=== PATIENT | male | born 1960 | race Caucasian/White ===

== ENCOUNTER 2020-02-01 09:34 | Emergency (ER) | payer OTHER ==
--- NOTE | 2020-02-01 09:51 | ED Physician Documentation ---
PD HPI GI BLEED - Stated complaint Stated Complaint: BLOODY STOOL - Chief complaint Chief Complaint: Abd Pain - History obtained from History obtained from: Patient - History of Present Illness Timing - onset: How many days ago (5) Timing - duration: Days (5) Timing - details: Abrupt onset, Still present Associated symptoms: Diarrhea (4-6 times daily for the past 5 days. Noted some rust color to it the past couple of days.). No: Vomiting Contributing factors: Travel (Drove here from [facility] 5 days ago. He states he ate at a couple of fast food restaurants on the way. Denies camping or ground water ingestion. No obviously bad foods.). No: Sick contact, Bad food, Recent antibiotics Worsened by: Eating (He has more diarrhea after eating so has been having a "brat" diet) Similar symptoms before: Has not had sx before Recently seen: Not recently seen Review of Systems Constitutional: reports: Fever (Subjective fever feeling a couple of days ago. None in the last 2 days.), Myalgias, Fatigue Nose: denies: Rhinorrhea / runny nose, Congestion Throat: denies: Sore throat Respiratory: denies: Cough GI: reports: Nausea, Diarrhea, Bloody / black stool (rust/faint red color.). denies: Vomiting, Hematemesis : reports: Dysuria Neurologic: reports: Generalized weakness. denies: Focal weakness, Numbness, Near syncope PD PAST MEDICAL HISTORY - Past Medical History Cardiovascular: None Respiratory: None Neuro: None GI: None - Present Medications Home Medications: Ambulatory Orders Medication Instructions Recorded Confirmed Diphenoxylate/Atropine [Lomotil] 1 each PO QID PRN #16 tablet 02/01/20 Ondansetron Odt [Zofran] 4 mg TL Q6H PRN #10 tablet 02/01/20 Saccharomyces Boulardii [Florastor] 250 mg PO BID #20 capsule 02/01/20 - Allergies Allergies/Adverse Reactions: Allergies Allergy/AdvReac Type Severity Reaction Status Date / Time No Known Drug Allergies Allergy Verified 02/01/20 10:12 PD ED PE NORMAL - Vitals Vital signs reviewed: Yes - General General: Alert and oriented X 3, No acute distress, Well developed/nourished - HEENT HEENT: Moist mucous membranes, Pharynx benign - Neck Neck: Supple, no meningeal sign, No adenopathy - Cardiac Cardiac: RRR, No murmur - Respiratory Respiratory: Clear bilaterally - Abdomen Abdomen: Normal bowel sounds, Soft, Non tender, Non distended, No organomegaly - Male Male : Deferred - Rectal Rectal: Deferred - Derm Derm: Normal color, Warm and dry - Extremities Extremities: Normal ROM s pain, No edema, No calf tenderness / cord - Neuro Neuro: Alert and oriented X 3, No motor deficit, Normal speech Results - Vitals Vitals: Oxygen O2 Source Room air - Labs Labs: Laboratory Tests 02/01/20 02/01/20 02/01/20 10:20 10:20 11:14 WBC 5.1 RBC 4.71 Hgb 14.5 Hct 41.5 L MCV 88.1 MCH 30.8 MCHC 34.9 RDW 12.9 Plt Count 171 MPV 10.1 Neut # (Auto) 2.7 Lymph # (Auto) 1.5 [place] # (Auto) 0.8 Eos # (Auto) 0.1 Baso # (Auto) 0.1 Absolute Nucleated RBC 0.00 Nucleated RBC % 0.0 Sodium 134 L Potassium 4.2 Chloride 99 L Carbon Dioxide 27 Anion Gap 8.0 BUN 15 Creatinine 1.3 H Estimated GFR (MDRD) 57 L Glucose 110 H Calcium 8.5 Total Bilirubin 0.7 AST 29 ALT 24 Alkaline Phosphatase 46 Total Protein 7.2 Albumin 4.1 Globulin 3.1 Albumin/Globulin Ratio 1.3 Lipase 41 Stl C. diff Tox B Gene NEGATIVE PD MEDICAL DECISION MAKING - ED course Complexity details: re-evaluated patient (Since we have stool studies pending, I talked about empiric treatment with antibiotics versus symptom medicine and awaiting "culture" results into tomorrow. He opted to hold on antibiotics pending results), considered differential (Given some report of slight bloodiness as well as a subjective fever couple of days ago, I am more inclined to think a bacterial enteritis. He did bring a sample of stool with him that he put in a Ziploc bag and it is diarrheal without gross blood. We can send this to the lab for specific studies.), d/w patient Departure - Departure Disposition: 01 Home, Self Care Clinical Impression: Acute infective gastroenteritis Condition: Stable Record reviewed to determine appropriate education?: Yes Instructions: ED Food Poison Or Gastroenteritis Prescriptions: Saccharomyces Boulardii [Florastor] 250 mg PO BID #20 capsule Diphenoxylate/Atropine [Lomotil] 1 each PO QID PRN #16 tablet PRN Reason: Diarrhea Ondansetron Odt [Zofran] 4 mg TL Q6H PRN #10 tablet PRN Reason: Nausea / Vomiting Comments: [place] foods such as simple carbohydrates (pastas, rice, starches, simple proteins) and frequent fluids. Okay to progress diet as tolerated. Ondansetron if needed for nausea. Lomotil for diarrhea. Add probiotics twice daily for the next week or so. The stool study results should be available later or tomorrow and will call you for positive results. Discharge Date/Time: 02/01/20 12:10
[2020-02-01] MEDS ORDERED: DICYCLOMINE 10 MG CAPSULE PO STA (10:12)
[2020-02-01] MEDS ORDERED: ONDANSETRON ODT 4 MG TABLET TL STA (10:12)
[2020-02-01] MEDS ORDERED: DIPHENOX/ATROPINE 2.5/0.025 MG TABLET PO STA (10:12)
[2020-02-01 10:25] LABS: BASOPHILS # (AUTO) 0.1 10^3/uL (0.0-0.1); EOSINOPHILS # (AUTO) 0.1 10^3/uL (0.0-0.7); EOSINOPHILS % (AUTO) 1.4 %; HGB - HEMOGLOBIN 14.5 g/dL (14.0-18.0); LYMPHOCYTES # (AUTO) 1.5 10^3/uL (1.5-3.5); LYMPHOCYTES % (AUTO) 29.3 %; MEAN CORPUSCULAR HEMOGLOBIN 30.8 pg (27.0-31.0); MEAN CORPUSCULAR HGB CONC 34.9 g/dL (32.0-36.0); MEAN CORPUSCULAR VOLUME 88.1 fL (80.0-94.0); MEAN PLATELET VOLUME 10.1 fL (7.4-11.4); MONOCYTES # (AUTO) 0.8 10^3/uL (0.0-1.0); MONOCYTES % (AUTO) 15.8 %; NEUTROPHILS # (AUTO) 2.7 10^3/uL (1.5-6.6); NEUTROPHILS % (AUTO) 52.1 %; PLT - PLATELET COUNT 171 10^3/uL (130-450); RED BLOOD COUNT 4.71 10^6/uL (4.70-6.10); RED CELL DISTRIBUTION WIDTH 12.9 % (12.0-15.0); WHITE BLOOD COUNT 5.1 x10^3/uL (4.8-10.8)
[2020-02-01 10:38] LABS: ALBUMIN 4.1 g/dL (3.2-5.5); ALBUMIN/GLOBULIN RATIO 1.3 (1.0-2.2); BILIRUBIN,TOTAL 0.7 mg/dL (0.2-1.0); CALCIUM 8.5 mg/dL (8.5-10.3); CREATININE 1.3 mg/dL (0.6-1.2); TOTAL PROTEIN 7.2 g/dL (6.7-8.2)
[2020-02-01 11:33] VITALS: BP 139/88
== END 2020-02-01 12:10 | disposition home or self-care (01) ==
LOC: ED 09:34
DX: A09 Infectious gastroenteritis and colitis, unspecified (principal)
CPT/HCPCS: 80053; 81599; 83690; 85025; 87493; 99283; 99284; A9270; 87045; 87046